=== PATIENT | female | born 1955 | race Caucasian/White ===

== ENCOUNTER 2019-12-05 21:45 | Emergency (ER) | payer MEDICAID ==
[~2019-12-05] VITALS: Ht 157.5 cm; Wt 77.9 kg
[~2019-12-05 21:45] MED LIST: AMLO-150 PO; AMLO10TA8 PO; ASPI-515 PO; ATOR40TA78 PO; FENO145T32 PO; FENO160T PO; GLIP5TAB10 PO; LIRA0.6P SC; LISI-170 PO; LISI40TA PO; METF10002 PO
[2019-12-05 21:46] VITALS: BP 193/99
--- NOTE | 2019-12-05 23:25 | NUR ---
PT TO ROOM FROM LOBBY
[2019-12-05] MEDS ORDERED: AMOXICILLIN 500 MG CAPSULE ONE (23:40)
[2019-12-05] MEDS ORDERED: HYDROcodone/APAP 5/325 TABLET ONE (23:40)
[2019-12-06] MEDS ORDERED: HYDROcodone/APAP 5/325 TABLET PO ONE
[2019-12-06] MEDS ORDERED: AMOXICILLIN 500 MG CAPSULE PO ONE
== END 2019-12-06 00:49 | disposition home or self-care (01) ==
LOC: ED 12-06 00:01
DX: K04.7 Periapical abscess without sinus (principal); I10 Essential (primary) hypertension; E11.9 Type 2 diabetes mellitus without complications
CPT/HCPCS: 99283

== ENCOUNTER 2020-12-24 05:21 | Day surgery (SDC) | payer MEDICAID ==
[2020-12-22 10:10] LABS: BASOPHILS % (AUTO) 1 % (0-1); EOSINOPHILS % (AUTO) 4 % (1-7); LYMPHOCYTES % (AUTO) 25 % (22-44); MEAN CORPUSCULAR HEMOGLOBIN 28.8 pg (27.0-34.8); MEAN CORPUSCULAR HGB CONC 33.4 g/dL (32.4-35.8); MEAN PLATELET VOLUME 8.3 fL (7.4-10.4); MONOCYTES % (AUTO) 7 % (2-9); NEUTROPHILS % (AUTO) 64 % (42-75); PLATELET COUNT 384 x10^3/uL (130-400); RED BLOOD COUNT 4.89 x10^6/uL (3.82-5.3)
[2020-12-22 10:19] LABS: ANION GAP 9 mmol/L (5-15); CALCIUM 9.8 mg/dL (8.5-10.1); CHLORIDE 106 mmol/L (98-107)
[2020-12-22 10:22] LABS: ALANINE AMINOTRANSFERASE 56 U/L (12-78); ALKALINE PHOSPHATASE 96 U/L (45-117); BILIRUBIN,TOTAL 0.4 mg/dL (0.2-1.0); CREATININE 1.27 mg/dL (0.55-1.02)
[~2020-12-24] VITALS: Ht 157.5 cm; Wt 75.1 kg
[~2020-12-24 05:21] MED LIST changes: +AMLO-211 PO; -AMLO10TA8 PO; -ASPI-515 PO; +ASPI-963 PO; +ASPI81TA45 PO; -LISI40TA PO; +LISI40TA9 PO; +MULT-658 PO; +SEMA0.25 SC
[2020-12-24 05:51] VITALS: BP 148/88
[2020-12-24] MEDS ORDERED: AMLO-211 PO (05:55)
[2020-12-24] MEDS ORDERED: EMPA25TA PO (05:56)
[2020-12-24] MEDS ORDERED: LACTATED RINGERS 1,000 ML IV SCH (06:00)
[2020-12-24] MEDS ORDERED: CHLORHEXIDINE 15 ML UDC PO ONE (06:00)
[2020-12-24] MEDS ORDERED: CHLORHEXIDINE 15 ML UDC ONE (06:01)
[2020-12-24] MEDS ORDERED: FENTANYL PF 100 MCG/2ML ONE (07:20)
[2020-12-24] MEDS ORDERED: OXYcodone 5 MG/5 ML ORAL.SOL UDC PO PRN (07:30)
[2020-12-24] MEDS ORDERED: ACETAMINOPHEN 325 MG TABLET PO PRN (07:30)
[2020-12-24] MEDS ORDERED: PROMETHAZINE 25 MG/ML, 1ML IVPush PRN (07:30)
[2020-12-24] MEDS ORDERED: EPHEDRINE 50 MG/ML, 1ML IVPush PRN (07:30)
[2020-12-24] MEDS ORDERED: ONDANSETRON 2MG/ML, 2ML IVPush PRN (07:30)
[2020-12-24] MEDS ORDERED: DIPHENHYDRAMINE 50 MG/ML, 1ML IVPush PRN (07:30)
[2020-12-24] MEDS ORDERED: METOPROLOL 1 MG/ML, 5ML IV PRN (07:30)
[2020-12-24] MEDS ORDERED: METOCLOPRAMIDE 5 MG/ML, 2ML IVPush PRN (07:30)
[2020-12-24] MEDS ORDERED: LABETALOL 5MG/ML, 20ML IV PRN (07:30)
[2020-12-24] MEDS ORDERED: HALOPERIDOL 5 MG/ML IV PRN (07:30)
[2020-12-24] MEDS ORDERED: FENTANYL PF 100 MCG/2ML IV PRN (07:30)
[2020-12-24] MEDS ORDERED: hydrALAzine 20 MG/ML, 1ML IV PRN (07:30)
[2020-12-24] MEDS ORDERED: KETOROLAC 30 MG/1 ML IVPush PRN (07:30)
[2020-12-24] MEDS ORDERED: ONDANSETRON 2MG/ML, 2ML ONE (07:41)
[2020-12-24] MEDS ORDERED: PROPOFOL 10 MG/ML, 50ML ONE (07:41)
== END 2020-12-24 09:11 | disposition home or self-care (01) ==
LOC: OUT 05:21
PROVIDERS: ATTEND Internal Medicine Gastroenterology
DX: D13.1 Benign neoplasm of stomach (principal); K21.9 Gastro-esophageal reflux disease without esophagitis; K22.8 Other specified diseases of esophagus; E11.9 Type 2 diabetes mellitus without complications; E78.00 Pure hypercholesterolemia, unspecified; I10 Essential (primary) hypertension; E66.9 Obesity, unspecified; Z86.73 Personal history of transient ischemic attack (TIA), and cerebral infarction without residual deficits; Z98.890 Other specified postprocedural states; Z90.49 Acquired absence of other specified parts of digestive tract; Z79.899 Other long term (current) drug therapy; Z20.822 Contact with and (suspected) exposure to COVID-19; Z79.82 Long term (current) use of aspirin; Z68.30 Body mass index [BMI] 30.0-30.9, adult
CPT/HCPCS: 36415; 43236; 43251; 43259; 80053; 82962; 85025; 88305; 93005; J2405; J2704; J3010; J7120; U0003; U0005